=== PATIENT | female | born 1995 | race Caucasian/White ===

== ENCOUNTER 2018-03-12 20:32 | Emergency (ER) | payer SELFPAY ==
[~2018-03-12] VITALS: Ht 165.1 cm; Wt 75.0 kg
[2018-03-12 20:35] VITALS: BP 107/66; TEMP 97.5
[2018-03-12] MEDS ORDERED: ADVIL200 MG PO (20:49)
[2018-03-12 21:28] VITALS: PULSE 68
== END 2018-03-12 21:28 | disposition home or self-care (01) ==
LOC: COL.ER 20:32
DX: S02.2XXA Fracture of nasal bones, initial encounter for closed fracture (principal); Z90.89 Acquired absence of other organs; W22.8XXA Striking against or struck by other objects, initial encounter; Y92.89 Other specified places as the place of occurrence of the external cause; Y99.0 Civilian activity done for income or pay